=== PATIENT | female | born 1950 | race Caucasian/White ===

== ENCOUNTER 2021-01-08 08:35 | Outpatient (REF) | payer MEDICARE, SELFPAY ==
--- NOTE | ~2021-01-08 | MM_ITS ---
EXAMINATION: BONE DENSITOMETRY CLINICAL INDICATION: Screening for osteoporosis. COMPARISON: Previous BD dated 06/04/2016 and baseline BD dated 03/02/2012. TECHNIQUE: Using a [email or web address] DXA System (software version: 13.1) manufactured by [facility], dual-energy x-ray absorptiometry was performed of the lumbar spine and left hip. The images are of good technical quality. Summary results are attached. FINDINGS: AP SPINE L1-L4: Current: BMD 0.935 g/cm2, Z-score -0.4, T-score -2.0, osteopenia, 1.8% decrease from previous, 3.8% decrease from baseline (<5% change is not significant). Prior: BMD 0.952 g/cm2. Baseline: BMD 0.972 g/cm2. LEFT FEMUR, NECK: Current: BMD 0.651 g/cm2, Z-score -1.1, T-score -2.8, osteoporosis. Prior: BMD 0.755 g/cm2. Baseline: BMD 0.753 g/cm2. LEFT FEMUR, TOTAL: Current: BMD 0.705 g/cm2, Z-score -0.9, T-score -2.4, osteopenia, 11.4% decrease from previous, 13.3% decrease from baseline (<5% change is not significant). Prior: BMD 0.796 g/cm2. Baseline: BMD 0.813 g/cm2. IDENTIFIED RISK FACTORS: Height loss, family history (parental hip fracture), menopause. HISTORY OF FRACTURE: None listed. MEDICATIONS: Calcium supplements or multivitamin, vitamin D. MM/XR DEXA axial skeleton IMPRESSION: 1. DIAGNOSIS: Osteoporosis based on the lowest T-score value of -2.8 in the femoral neck applying World Health Organization criteria. 2. 10-YEAR FRACTURE RISK PREDICTION, FRAX: Major osteoporotic fracture (clinical spine, forearm, hip or shoulder) 28.8%. Hip fracture 12.8%. 3. Treatment Recommendations: NOF guidelines recommend consideration for treatment in postmenopausal women and men age 50 and older presenting with the following: -A hip or vertebral (clinical or morphometric) fracture. -T-score less than or equal to -2.5 at the femoral neck or spine after appropriate evaluation to exclude secondary causes. -Low bone mass at the hip or spine and a 10-year fracture probability by FRAX of greater than or equal to 3% for hip fracture or greater than or equal to 20% for major osteoporotic fracture based on the [place] adapted WHO algorithm. 4. Other Recommendations: All treatment decisions require clinical judgment and consideration of individual patient factors, including patient preferences, comorbidities, previous drug use, risk factors not captured in the FRAX model (e.g. frailty, falls, vitamin D deficiency, increased bone turnover, interval significant decline in bone density) and possible under or overestimation of fracture risk by FRAX. Additional medical evaluation for secondary cause of low bone mineral density may be appropriate. FUTURE SCAN RECOMMENDATION: People with diagnosed cases of osteoporosis or at high risk for fracture should have regular bone mineral density tests. For patients eligible for Medicare, routine testing is allowed once every 2 years. The testing frequency can be increased to one year for patients who have rapidly progressing disease, those who are receiving or discontinuing medical therapy to restore bone mass, or have additional risk factors.
--- NOTE | ~2021-01-08 | MM_ITS ---
EXAMINATION: MM SCREENING DIGITAL BREAST TOMOSYNTHESIS, BILATERAL CLINICAL INFORMATION: Screening. Asymptomatic. The lifetime risk of breast cancer based on the Tyrer-Cuzick Model is 4%. COMPARISON: Mammography: 08/17/2018, 07/12/2017, 06/04/2016 TECHNIQUE: Digital breast tomosynthesis is performed in both the craniocaudal and mediolateral oblique views along with computer-aided detection (CAD). Synthesized 2D images are generated from the tomosynthesis. Additional right MLO and additional left CC views are provided. FINDINGS: The breasts are heterogeneously dense, which may obscure small masses (ACR BI-RADS breast composition Category c). The denser breast tissue composition is predominantly right upper outer quadrant with lesser density on left. The parenchymal pattern is similar to prior exams. There is no developing density or interval mass or architectural abnormality. No abnormal calcifications. The axilla and skin contours are unremarkable. No significant changes. MM/MM tomosynthesis screening BI IMPRESSION: No mammographic evidence of malignancy. ASSESSMENT: BI-RADS 1: Negative RECOMMENDATION: Routine annual mammography screening. This patient's information was entered into a reminder system with a target due date for their next mammogram.
== END 2021-01-08 08:36 | disposition home or self-care (01) ==
LOC: HO.MAMMO 08:35
PROVIDERS: Visit Provider Family Medicine
DX: Z12.31 Encounter for screening mammogram for malignant neoplasm of breast (principal); Z13.820 Encounter for screening for osteoporosis; Z78.0 Asymptomatic menopausal state; R29.890 Loss of height
CPT/HCPCS: 77063; 77067; 77080

== ENCOUNTER 2023-02-04 10:51 | Outpatient (REF) | payer MEDICARE, SELFPAY ==
--- NOTE | ~2023-02-04 | MM_ITS ---
EXAMINATION: BONE DENSITOMETRY CLINICAL INDICATION: Localized osteoporosis. COMPARISON: Previous BD dated 01/08/2021 and baseline BD dated 03/02/2012. TECHNIQUE: Using a [employer] DXA System (software version: 13.1) manufactured by [employer], dual-energy x-ray absorptiometry was performed of the lumbar spine and left hip. The images are of good technical quality. Summary results are attached. FINDINGS: LEFT FEMUR, NECK: Current: BMD 0.713 g/cm2, Z-score -0.5, T-score -2.3, osteopenia. Prior: BMD 0.651 g/cm2. Baseline: BMD 0.753 g/cm2. LEFT FEMUR, TOTAL: Current: BMD 0.735 g/cm2, Z-score -0.6, T-score -2.2, osteopenia, 4.3% increase from previous, 9.6% decrease from baseline (<5% change is not significant). Prior: BMD 0.705 g/cm2. Baseline: BMD 0.813 g/cm2. AP SPINE L1-L4: Current: BMD 0.901 g/cm2, Z-score -0.6, T-score -2.3, osteopenia, 3.6% decrease from previous, 7.3% decrease from baseline (<5% change is not significant). Prior: BMD 0.935 g/cm2. Baseline: BMD 0.972 g/cm2. IDENTIFIED RISK FACTORS: Height loss, family history (parent hip fracture), menopause. HISTORY OF FRACTURE: None listed. MEDICATIONS: Calcium, vitamin D. MM/XR DEXA axial skeleton IMPRESSION: 1. DIAGNOSIS: Osteopenia based on the lowest T-score value of -2.3 in the femur neck and lumbar spine applying World Health Organization criteria. 2. 10-YEAR FRACTURE RISK PREDICTION, FRAX: Major osteoporotic fracture (clinical spine, forearm, hip or shoulder) 25.5%. Hip fracture 12.9%. 3. Treatment Recommendations: NOF guidelines recommend consideration for treatment in postmenopausal women and men age 50 and older presenting with the following: -A hip or vertebral (clinical or morphometric) fracture. -T-score less than or equal to -2.5 at the femoral neck or spine after appropriate evaluation to exclude secondary causes. -Low bone mass at the hip or spine and a 10-year fracture probability by FRAX of greater than or equal to 3% for hip fracture or greater than or equal to 20% for major osteoporotic fracture based on the [place] adapted WHO algorithm. 4. Other Recommendations: All treatment decisions require clinical judgment and consideration of individual patient factors, including patient preferences, comorbidities, previous drug use, risk factors not captured in the FRAX model (e.g. frailty, falls, vitamin D deficiency, increased bone turnover, interval significant decline in bone density) and possible under or overestimation of fracture risk by FRAX. Additional medical evaluation for secondary cause of low bone mineral density may be appropriate. FUTURE SCAN RECOMMENDATION: People with diagnosed cases of osteoporosis or at high risk for fracture should have regular bone mineral density tests. For patients eligible for Medicare, routine testing is allowed once every 2 years. The testing frequency can be increased to one year for patients who have rapidly progressing disease, those who are receiving or discontinuing medical therapy to restore bone mass, or have additional risk factors.
== END 2023-02-04 10:52 | disposition home or self-care (01) ==
LOC: HO.MAMMO 10:51
PROVIDERS: Visit Provider Internal Medicine Endocrinology, Diabetes & Metabolism
DX: Z13.820 Encounter for screening for osteoporosis (principal); Z78.0 Asymptomatic menopausal state; M81.6 Localized osteoporosis [Lequesne]
CPT/HCPCS: 77080

== ENCOUNTER → 2025-05-18 09:15 | Outpatient (BNV) | payer MEDICARE, SELFPAY | PROVIDERS: PCP Family Medicine; Visit Provider Radiology Diagnostic Radiology | DX: E28.39 Other primary ovarian failure (principal) | CPT/HCPCS: 77080 ==

== ENCOUNTER 2025-05-18 09:22 | Outpatient (REF) | payer MEDICARE, SELFPAY ==
--- NOTE | ~2025-05-18 | MM_ITS ---
EXAMINATION: DXA BONE DENSITY AXIAL HISTORY: OSTEOPENIA TECHNIQUE: [place] Dual energy absorptiometry (DEXA) of the lumbar spine, total left hip, and femoral neck was performed. COMPARISON: Comparison is made with the prior examination dated 02/04/2023. FINDINGS: The bone mineral density of the lumbar spine is 0.903 g/cm2, corresponding to a T-score of -2.3, and a Z-score of -0.8. This is indicative of osteopenia. This represents a BMD change of 0.2% compared to the prior exam. This is not statistically significant. The bone mineral density of the left total hip is 0.758 g/cm2, corresponding to a T-score of -2.0, and a Z-score of -0.4. This is indicative of osteopenia. This represents a BMD change of 3.1% compared to the prior exam. This is not statistically significant. The bone mineral density of the left femoral neck is 0.723 g/cm2, corresponding to a T-score of -2.3, and a Z-score of -0.5. This is indicative of osteopenia. This represents a BMD change of 1.4% compared to the prior exam. FRACTURE RISK: The FRAX index suggests a ten year probability of major osteoporotic fracture of 27.9%, and of hip fracture 17.7%. MM/XR DEXA axial skeleton IMPRESSION: Based on bone mineral density, and according to World Health Organization (WHO) criteria, the diagnosis is consistent with osteopenia. Statistically, 68% of repeat scans fall within 1 SD (+/- 0.010 g/cm2 for AP spine L1-L4) and 1 SD (+/- 0.012 g/cm2 for femur total) FRAX is a trademark of the [employer] [facility] [employer], a World Health Organization (WHO) Collaborating Center. Electronically signed by: Pantera Patiño MD 05/18/2025 10:30 AM EDT
--- OUTSIDE RECORDS SUMMARY | 2025-05-18 10:14 | XMS_ITS | Clinical Summary ---
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 Name Role Phone Daron Juarez DO Primary Care Provider [phone] Allergies Active Allergy Reactions Criticality Noted Date Comments Allerg Xt,D.Farinae-D.Pteronys 06/22/2023 Animal Dander 06/22/2023 Bee Pollen 06/22/2023 Bee Pollens Swelling Low 12/17/2015 Horse/Equine Containing Products 06/22/2023 House Dust Mite 06/22/2023 Levonorgestrel-Ethinyl Estrad 06/22/2023 Mold 06/22/2023 Mold Extracts Other (See Comments) Low 04/06/2019 congestion Other 06/22/2023 Other reaction(s): guinea pigs, horses, rabbits Pollen Extracts 06/22/2023 Pollens Extract Other (See Comments) Low 04/06/2019 congestion Atomoxetine 06/09/2024 Tree And Shrub Pollen 06/22/2023 Medications Medication-Evert e Text multivitamin Active carboxymethylc ellulose sodium (THERATEARS OPHT) Apply to eye. 2 Active Medication-Evert e TextIndication s:Osteo-Sustai n 3 tabs a day Indications: Osteo-Sustain 3 tabs a day Active CHOLECALCIFERO L, VITAMIN D3, ORAL Take by mouth daily. 0246-1469 units daily Active cetirizine (ZYRTEC) 10 MG tablet Take by mouth as needed. Active atomoxetine (STRATTERA) 60 mg capsule Take 60 mg by mouth daily. 3 Active EPINEPHrine 0.3 mg/0.3 mL auto-injector 0.3 mg once as needed. 4 Active b complex vitamins capsule Take 1 capsule by mouth daily. Active diphenhydrAMIN E (BENADRYL) 25 mg capsule Take 25 mg by mouth every 6 (six) hours as needed for itching. Active mometasone (NASONEX) 50 mcg/actuation nasal spray 2 sprays by Nasal route daily. Active clobetasol (TEMOVATE) 0.05 % ointmentIndica tions:Lichen sclerosus Apply topically 4 (four) times a week. Thin application to affected area 30 g 5 Active magnesium carbonate, bulk, Powd by Miscellaneous route. Active Active Problems Problem Noted Date Diagnosed Date Osteopenia of multiple sites 11/17/2024 Trigger ring finger of left hand 07/28/2024 Assessment & Plan (07/28/2024 10:19 PM EST): Use warm packs in addition to moisturizer or baby oil and gently massage along the flexor tendon sheath starting from proximal crease aiming distally in gentle circular motion. Call if symptoms progress despite above strategy. Trigger middle finger of left hand 07/28/2024 Assessment & Plan (07/28/2024 10:22 PM EST): See instructions for left ring finger triggering. Age-related osteoporosis wit hout current pathological fracture 08/12/2022 Assessment & Plan (11/17/2024 8:41 AM EDT): BMD from 02/04/2023 at [facility] revealed marked osteopenia with increased risk of osteoporotic fracture. Fall and fracture prevention strategies reviewed and strongly encouraged. Proper calcium and vitamin D supplementation. Daily weightbearing exercises. I have explained to her that at this stage she is not able to keep bone density from worsening just by above strategies and needs to start bone preserving therapy as soon as possible. She wishes to contact [facility] hoping to get implants prior to starting bone preserving therapy. 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 Interval BMD requested. Assessment & Plan (07/28/2024 10:26 PM EST): BMD from 02/04/2023 at [facility] revealed marked osteopenia with increased risk of osteoporotic fracture. Fall and fracture prevention strategies reviewed and strongly encouraged. Proper calcium and vitamin D supplementation. Daily weightbearing exercises. I have explained to her that at this stage she is not able to keep bone density from worsening just by above strategies and needs to start bone preserving therapy as soon as possible. She wishes to contact [facility] hoping to get implants prior to starting bone preserving therapy. 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 Assessment & Plan (05/09/2024 10:18 PM EDT): She could not recall when was the last BMD so I requested's checking on it and if longer than 2 years ago consider interval imaging. Fall and fracture prevention strategies reviewed and strongly encouraged. Proper calcium and vitamin D supplementation. Daily weightbearing exercises. 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 Assessment & Plan (02/23/2023 9:16 PM EDT): She could not recall when was the last BMD so I requested's checking on it and if longer than 2 years ago consider interval imaging. Fall and fracture prevention strategies reviewed and strongly encouraged. Proper calcium and vitamin D supplementation. Daily weightbearing exercises. 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 Assessment & Plan (08/12/2022 10:56 PM EST): She could not recall when was the last BMD so I requested's checking on it and if longer than 2 years ago consider interval imaging. Fall and fracture prevention strategies reviewed and strongly encouraged. Proper calcium and vitamin D supplementation. Daily weightbearing exercises. Vitamin D insufficiency 08/12/2022 Assessment & Plan (11/16/2024 9:43 AM EDT): Continue regular supplementation to keep it in optimal range: 40-45 ng/ml. Assessment & Plan (05/09/2024 10:17 PM EDT): Continue regular supplementation to keep it in optimal range: 40-45 ng/ml. Assessment & Plan (02/23/2023 9:15 PM EDT): Continue regular supplementation to keep it in optimal range: 40-45 ng/ml. Assessment & Plan (08/12/2022 10:55 PM EST): Serum level requested to make sure that she does not require additional supplementation to keep it in optimal range: 40-45 ng/ml. Psoriatic arthritis 08/12/2022 Assessment & Plan (11/17/2024 8:41 AM EDT): She is not clear whether diagnosis was made in 2012 or 2015 but believes it was based on sausage toe appearance. She was monitored & told that methotrexate may be offered if disease progresses. According to her assessment she does not feel need for methotrexate at this time since in her opinion the disease is rather stable. Lab work, x-rays returned repeatedly reassuring as recently as on 08/24/2024. She is asked to update her vaccination status for Shingrix and tetanus and return in 6 mths. Continue regular exercise routine, avoid falls, injuries, overuse and sick contacts . I provided her with pamphlets on methotrexate and Taltz after reviewing the office of most frequent side effects, ways of administering and expected benefits. She is asked to review the information, write her questions for discussion at next visit in 6 mths or earlier if needed. Assessment & Plan (07/28/2024 10:27 PM EST): She is not clear whether diagnosis was made in 2012 or 2015 but believes it was based on sausage toe appearance. She was monitored told that methotrexate may be offered if disease progresses. According to her assessment she does not feel need for methotrexate at this time since in her opinion the disease is rather stable. Lab work, x-rays were reassuring -new set of labs and x-rays requested for interval checkup. She is asked to up to date her vaccination status for Shingrix and tetanus and return in 5 weeks. Continue regular exercise routine, avoid falls, injuries, overuse and sick contacts . I provided her with pamphlets on methotrexate and Taltz after reviewing the office of most frequent side effects, ways of administering and expected benefits. She is asked to review the information, write her questions for discussion at next visit in 5 weeks. Assessment & Plan (05/09/2024 10:19 PM EDT): She is not clear whether diagnosis was made in 2012 or 2015 but believes it was based on sausage toe appearance. She was monitored told that methotrexate may be offered if disease progresses. According to her assessment she does not feel need for methotrexate at this time since in her opinion the disease is rather stable. Lab work, x-rays are reassuring - she is asked to continue regular exercise routine, avoid falls, injuries, overuse and sick contacts and return in 3 months . Assessment & Plan (02/23/2023 9:19 PM EDT): She is not clear whether diagnosis was made in 2012 or 2015 but believes it was based on sausage toe appearance. She was monitored told that methotrexate may be offered if disease progresses. According to her assessment she does not feel need for methotrexate at this time since in her opinion the disease is rather stable. Lab work, x-rays are reassuring - she is asked to continue regular exercise routine, avoid falls, injuries, overuse and sick contacts and return in 12 months or earlier if necessary. Assessment & Plan (08/12/2022 10:59 PM EST): She is not clear whether diagnosis was made in 2012 or 2015 but believes it was based on sausage toe appearance. She was monitored told that methotrexate may be offered if disease progresses. According to her assessment she does not feel need for methotrexate at this time since in her opinion the disease is rather stable. I took the liberty of new set of lab work and requested release of prior records for comparison to guide further management Provided lab work, x-rays are reassuring she is asked to continue regular exercise routine, avoid falls, injuries, overuse and sick contacts and return in 6 months. Lichen sclerosus 06/23/2018 Overview (03/21/2025): Biopsy was negative years ago But diagnosed by exam by Dr Tavera Causes itchiness Uses clobetasol twice weekly -flare 06/2018 - burst and taper - much better - continue clobetasol 3x/wk, estradiol 3x/wk 09/2019 - using clob 2x/wk, clitoral keratosis returned; advised daily clobetasol until next visit 09/2020 - clitoral area and 6mm area at posterior forchet with white keratosis; advised increase clob from 2x/wk to 4x/wk, and resumption of estrace pea sized to introitus 2x/wk, olive oil last day 10/2021 - stable anatomy, with resolution of keratosis. Continue use of clobetasol 4 times weekly, and estradiol 2 times weekly 05/2023 - no change 02/2025 - stopped estradiol . Continue clobetasol 4x/wk Assessment & Plan (03/21/2025 4:17 PM EDT): Stable LS with vague hypopigmentation She stopped estradiol when she ran out 6 months ago and notes nothing negative Advised ok to not resume this Assessment & Plan (06/24/2023 9:30 AM EST): Feels status quo Using clobetasol small amount about 4 times weekly and estradiol about 2 times weekly We discuss option of oils as well today Exam with 95% phimosis of the hinson and complete loss of labia minora. Skin is atrophic smooth and without lesions or keratosis Advised no change in regimen Assessment & Plan (11/21/2021 10:45 AM EDT): 10/2021 - stable anatomy, with resolution of keratosis. Continue use of clobetasol 4 times weekly, and estradiol 2 times weekly Assessment & Plan (10/11/2020 11:10 AM EDT): 95% phimosis of hinson, with some hinson edema, and slight white keratosis around clitoris, absent labia minora Keratosis 6mm at posterior forchet Pt shown with mirror, reviewed use of topicals 09/2020 - clitoral area and 6mm area at posterior forchet with white keratosis; advised increase clob from 2x/wk to 4x/wk, and resumption of estrace pea sized to introitus 2x/wk, olive oil last day Assessment & Plan (09/29/2019 3:55 PM EST): She has not seen me in over a year; but reports has been compliant with clobetasol and estrace, using each about twice weekly. Things things are ok; better than they had been at worst in the past, but not without symtpoms. Feels itching at times. I show her with a mirror today's exam: there is again hyperkeratosis around the clitoral area; still 80% fusion in this area. I ask her to concentrate on this area and apply nightly clobetasol here for about 8 weeks; until next visit. The rest of the vulva she can conitnue as she is doing with twice weekly clobetasol and estrace. The rest of the vulva is stable; absent labia minora, palourous perineum, but without keratosis, bleeding, or skin concerns. We discuss small risk of skin cancer with poor control. Refill clobetasol printed for patient upon her request. Total time spent 15] minutes face to face; at least 50% of this time was spent on direct patient counseling. All questions answered. History of malignant melanoma 06/23/2018 Overview (06/23/2018): 1986 Assessment & Plan (11/16/2024 9:43 AM EDT): According to her report excised completely and no recurrence since 1992. She is under regular dermatologic surveillance every 6-12 months. Uses daily sun protection. Assessment & Plan (07/28/2024 9:48 AM EST): According to her report excised completely and no recurrence since 1992. She is under regular dermatologic surveillance every 6-12 months. Uses daily sun protection. Assessment & Plan (05/09/2024 10:17 PM EDT): According to her report excised completely and no recurrence since 1992. She is under regular dermatologic surveillance every 6-12 months. Uses daily sun protection. Assessment & Plan (02/11/2023 10:06 AM EDT): According to her report excised completely and no recurrence since 1992. She is under regular dermatologic surveillance every 6-12 months. Uses daily sun protection. Assessment & Plan (08/12/2022 10:54 PM EST): According to her report excised completely and no recurrence since 1992. She is under regular dermatologic surveillance every 6-12 months. Uses daily sun protection. Encounters Date Type Department Care Team Description 03/21/2025 4:10 PM EDT Office Visit [facility] [address] [place] [address] [place] [address] Deisi Mendoza MD Lichen sclerosus (Primary Dx); Breast cancer screening by mammogram from Last 3 Months Immunizations Immunization Administration Dates Next Due INFLUENZA, SPLIT VIRUS, TRIV ALENT W/ PRESERVATIVE IM 04/17/2020,05/16/2019 Influenza High-Dose Quadriva lent Preservative Free IM 04/28/2023,05/26/2022,04/10/2021 Influenza High-Dose Trivalen t Preservative Free IM 03/30/2024 Influenza Quadrivalent Adjuv anted Preservative Free IM 04/17/2020 Influenza Quadrivalent Prese rvative Free IM 06/01/2017 Influenza quadrivalent nasal 05/22/2011 Influenza, whole 05/11/2018, 7,05/07/2016,05/13,06/14/2014,05/25/2013,05/26/2012 PPD Test 07/15/2010 Pneumococcal conjugate PCV13 07/02/2016 Pneumococcal polysaccharide PPSV23 02/25/2015 Td (adult),2 Lf Tetanus Toxo id, PF, Adsorbed 03/07/2008 Td, unspecified formulation 03/07/2008 Tdap 08/31/2011 Zoster live 08/29/2014 Family History Medical History Relation Comments Melanoma Brother Cardiovascular disease Father Depression Father Heart attack Father Alzheimer's disease Maternal Grandmother Diabetes Maternal Grandmother Cardiovascular disease Mother Dementia Mother Hypertension Mother Cancer Paternal Grandfather ADD / ADHD Sister 1 Depression Sister 1 ADD / ADHD Sister 2 Depression Sister 2 Relation Status Comments Brother Father Maternal Grandmother Mother Paternal Grandfather Sister 1 Sister 2 Social History Tobacco Use Types Packs/Day Years Used Date Smoking Tobacco: Never Smokeless Tobacco: Never Tobacco Cessation:Counseling Given: Not Answered Alcohol Use Standard Drinks/Week Comments Yes 0 (1 standard drink = 0.6 oz pur e alcohol) socially rare Education Answer Date Recorded Are you interested in more education? Not on barrera e 11/20/2022 Are you concerned about learning? Not on file 11/20/2022 No 11/20/2022 No 11/20/2022 Food Answer Date Recorded Within the past 6 months we worried whether our food would run out before we got money to buy more. Never True 01/22/2025 Within the past 6 months the food we bought just didn't last and we didn't have enough money to get more. Never True Residential Stability Answer Date Recor ded What is your housing situation today? I have kelsi sing 01/22/2025 How many times have you move d in the past 12 months? Zero (I did not move) 01/22/2025 Paying for Meds Answer Date Recorded Do you have trouble paying for medicines? No 01/22/2025 Paying Utility Bills Answer Date Record ed Do you have trouble paying your heating or elect ricity bill? No 01/22/2025 Transportation Answer Date Recorded Has the lack of transportati on kept you from medical appointments or from getting medications? No 01/22/2025 Digital Access Answer Date Recorded No 01/22/2025 Yes 01/22/2025 Do you have reliable internet access at home? Ye s 01/22/2025 Do you have a device (e.g., phone, tablet, computer) with a working camera? Yes 01/22/2025 Intimate Partner Violence Answer Date R ecorded Are you denied basic needs s uch as food, clothing, or medical care? No 01/22/2025 In the past 12 months have y ou been in a relationship with a person who hurts, threatens, or tries to control you? No 01/22/2025 Are you denied basic needs s uch as food, clothing, or medical care? No 01/22/2025 In the past 12 months have y ou been in a relationship with a person who hurts, threatens, or tries to control you? 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 Not on file Not on file Not on file Last Filed Vital Signs Vital Sign Reading Time Taken Comments Blood Pressure 122/70 03/21/2025 3:53 PM EDT Pulse 82 01/22/2025 11:23 PM EDT Temperature 35.6 C (96.1 F) 01/22/2025 11:23 PM EDT Respiratory Rate 16 01/22/2025 11:23 PM EDT Oxygen Saturation 100% 01/22/2025 11:23 PM EDT Inhaled Oxygen Concentration - - Weight 73 kg (161 lb) 03/21/2025 3:53 PM EDT Height 162.6 cm (5' 4 ) 03/21/2025 3:53 PM EDT Body Mass Index 27.64 03/21/2025 3:53 PM EDT Plan of Treatment Upcoming Encounters Date Type Department Care Team (Late st Contact Info) Description 06/27/2025 4:30 PM EST Office Visit [facility] [address] [place] [address] Tiana Ovalles MD [address] [place] [address], [address] [place] [address] [email or web address] Health Maintenance Due Date Last Done Comments DEPRESSION SCREENING 1962 COLOGUARD 1995 FIT TEST 1995 FOBT 1995 SIGMOIDOSCOPY 1995 VIRTUAL COLONOSCOPY 1995 ZOSTER VACCINES (2 of 3) 10/24/2014 08/29/2014 Adult Td,Tdap Booster 08/31/2021 08/31/2011 , 03/07/2008, 03/07/2008 LIPID PANEL 07/30/2023 07/30/2018 RSV VACCINE (1 - 1-dose 75+ series) 2025 INFLUENZA VACCINE (#1) 2025 4, 04/28/2023, 05/26/2022, Additional history exists COVID-19 VACCINE (9 - 2025- season) 2025 03/30/2024, 06/30/2023, 12/23/2022, Additional history exists COLONOSCOPY 06/09/2034 06/09/2024 COLORECTAL CANCER SCREENING 06/09/2034 PNEUMOCOCCAL VACCINES (50+ years) Completed 07/02/2016, 02/25/2015 HEPATITIS C SCREENING Completed 08/01/2024 OSTEOPOROSIS SCREENING INITIAL (ONE-TIME) Completed 11/16/2024, 02/04/2023 SMOKING STATUS SCREENING (Once After 26 Yrs) Completed 01/22/2025 HEPATITIS A VACCINES Aged Out No long er eligible based on patient's age to complete this topic HIB VACCINES Aged Out No longer eligi ble based on patient's age to complete this topic MENINGOCOCCAL VACCINES (ACWY) Aged Out No longer eligible based on patient's age to complete this topic MENINGOCOCCAL VACCINES (B) Aged Out N o longer eligible based on patient's age to complete this topic Medical Devices Not on file Procedures Procedure Name Priority Date/Time Associated Diagnosis Comments BD DXA SCREENING Routine 11/16/2024 9:36 AM EDT Osteopenia of multiple sites HEPATITIS C ANTIBODY, QUALITATIVE Routine 08/01/2024 11:33 AM EST Psoriatic arthritis History of malignant melanoma Need for hepatitis C screening test ENDOSCOPY, COLON 06/09/2024 12:2 6 PM EST LIPID PANEL Routine 07/30/2018 10:01 AM EST Screening for lipoid disorders SAPHO syndrome from Last 3 Months or Most Recently Relevant to Health Maintenance Results * Hepatitis C antibody, qualitative (08/01/2024 11:33 AM EST) HCV NON-REACTIV E NON-REACTI VE [facility] Blood 08/01/2024 11:3 3 AM EST 08/01/2024 11:40 AM EST us Tiana Ovalles MD LAB BLOOD ORDERABLES Fin al Result [address] [address] * ENDOSCOPY, COLON (06/09/2024 12:26 PM EST) Narrative Transcriptions Medardo Neff MD - 06/09/2024 12:26 PM EST [facility] Patient Name: Leeann Malu Attending MD:: MEDARDO NEFF MD, Procedure Date: 06/09/2024 12:26PM Date of : 1950 Age: 74 Admit Type: Outpatient Gender: Female Room: [place] [address] Referring MD: Daron Juarez Exam Type: Colonoscopy Indications: Screening for colorectal malignant neoplasm, Last colonoscopy: 2007 Medications: Monitored Anesthesia Care Procedure: Informed consent was obtained from the patientafter discussion of the indications, limitations, alternatives, benefits, and risks of the procedure. Risks specifically discussed include but are not limited to medication reactions, missed lesions, bleeding, perforation, or the need for emergent surgery. Throughout the procedure, the patient's blood pressure, pulse, end-tidal CO2, and oxygensaturations were monitored continuously. The Olympus adult variable colonoscope [id number] #5 was introduced through the anus and advanced to the cecum, identified by the appendiceal orifice. The colonoscopy was performed without difficulty. The patient tolerated the procedure well. The qualityof the bowel preparation was good. Anatomicallandmarks were photographed. Complications: No immediate complications. Estimated blood loss:None. Findings: The perianal and digital rectal examinations were normal. An 8 mm polyp was found in the cecum. The polyp was sessile. The polyp was removed with a cold snare. Resection and retrieval were complete. The rectum, recto-sigmoid colon, sigmoid colon, descending colon, splenic flexure, transversecolon, hepatic flexure, ascending colon, appendicealorifice and rectum (on retroflexion) appeared normal. Impression: - One 8 mm polyp in the cecum, removed with a cold snare. Resected and retrieved. - The rectum (on retroflexion), rectum, sigmoidcolon, descending colon, splenic flexure, transversecolon, hepatic flexure, ascending colon, recto-sigmoidcolon and appendiceal orifice are normal. Recommendation: - Discharge patient to home. - Resume previous diet. - Continue present medications. - Await pathology results. - Repeat colonoscopy in 3 years for surveillance. - I will send you pathology results by letter. Ifyou do not get results in 3 weeks telephone myoffice. MEDARDO NEFF MD 06/09/2024 12:58:12 PM This report has been signed electronically. Number of Addenda: 0 Note Initiated On: 06/09/2024 12:26 PM Procedure Code(s): --- Professional --- 14868, Colonoscopy, flexible; with removal of tumor(s), polyp(s), or other lesion(s) by snare technique --- Technical --- 94146, Colonoscopy, flexible; with removal of tumor(s), polyp(s), or other lesion(s) by snare technique Diagnosis Code(s): --- Professional --- Z12.11, Encounter for screening for malignantneoplasm of colon D12.0, Benign neoplasm of cecum --- Technical --- Z12.11, Encounter for screening for malignantneoplasm of colon D12.0, Benign neoplasm of cecum CPT copyright 2021 [employer]. All rights reserved. The codes documented in this report are preliminary and upon tar kettle runner reviewmay be revised to meet current compliance requirements. Procedure Date: 06/09/2024 12:26:[address] [place] [id number] [place] Daron Juarez DO GI PROCEDURE ORDERABLES Sowmya l Result * DEXA SCAN (02/04/2023 12:30 PM EDT) Historical Provider HEALTH MAINTENANCE Final Result * (ABNORMAL) Lipid panel (07/30/2018 10:01 AM EST) HDL 59 mg/dL [facility] Comment: Interpretation <40 mg/dL: Low HDL cholesterol (major risk factor for CHD) Greater than or equal to 60 mg/dL: High HDL cholesterol ( negative risk factor for CHD) HDL - cholesterol is affected by a number of factors, e.g. smoking, excerise, hormones, sex and age. CHOLESTEROL 173 0 - 240 mg/dL [facility] TRIGLYCERIDES 72 30 - 160 mg/dL [facility] LDL 100 50 - 129 mg/dL [facility] Comment: LDL levels in terms of risk for coronary heart disease: <100 mg/dL: Optimal 100-129 mg/dL: Near or above optimal 130-159 mg/dL: Borderline high 160-189 mg/dL: High >190 mg/dL: Very High CARDIAC RISK RATIO 2.9(L) 3.3 - 4.4 [facility] Blood 07/30/2018 10:0 1 AM EST 07/30/2018 10:02 AM EST Zari Morrison MD LAB BLOOD ORDERABLES Sowmya l Result [facility] [address] [place] [address] from Last 3 Months or Most Recently Relevant to Health Maintenance Insurance [place] MEDICARE PPO BLUE REPLACEMENT [facility] MEDICARE PPO BLUE REPLACEMENT [facility] MEDICARE PPO BLUE REPLACEMENT [facility] MEDICARE PPO BLUE REPLACEMENT [facility] MEDICARE PPO BLUE REPLACEMENT [facility] MEDICARE PPO BLUE REPLACEMENT [facility] MEDICARE PPO BLUE REPLACEMENT [facility] MEDICARE PPO BLUE REPLACEMENT [facility] MEDICARE PPO BLUE REPLACEMENT Care Teams Hemp Fiber Taker Off Relationship Specialty Start Date End Date [facility] [address] [address] PCP - General Family Medicine 04/27/24 Additional Source Comments The information contained in this document represents components of the legal health record. It is not the complete legal health record.Located Within [facility]
--- OUTSIDE RECORDS SUMMARY | 2025-05-18 10:14 | XMS_ITS | Encounter Summary ---
Author Organization [facility] Address [address] [place] [address] [place] [address] Phone Care Team Providers Care Activity Manager Name Role Phone Zari Morrison MD Primary Care Provider [phone] [phone] Daron Juarez DO Primary Care Provider Reason for Referral * Speech Therapy (Routine) - Closed Specialty Diagnoses / Procedures Referred By Lele grace Referred To Contact Speech Pathology Nixon Aguilar MD Phone: tel: fax: [email or web address] [facility] [address] [place] [address] Phone: tel: Referral ID Status Reason Start Date Expiration Date Visits Re quested Visits Authorized [id number] Closed 04/24/2019 04/24/2020 1 1 Encounter Details Date Type Department Care Team (Late st Contact Info) Description 04/24/2019 Transcribe Orders [facility] [address] [place] [address] Nixon Aguilar MD [address] 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 Not on file Not on file documented as of this encounter Plan of Treatment Upcoming Encounters Date Type Department Care Team (Late st Contact Info) Description 06/27/2025 4:30 PM EST Office Visit [facility] Rheumatology [address] [place] [address] Tiana Ovalles MD [address] [address] [email or web address] Scheduled Referrals Name Type Priority Associated Diagnoses Order Schedule Ambulatory referral to [facility] Speech Language Pathology Outpatient Referral Routine Ordered: 04/24/2019 documented as of this encounter Visit Diagnoses Not on filedocumented in this encounter Care Teams Activity Manager Relationship Specialty Start Date End Date Zari Morrsion MD [address] [place] [address] [email or web address] PCP - General Family Medicine 09/27/1704/26 Daron Juarez DO [address] [address] PCP - General Family Medicine 04/27/24 documented as of this encounter Additional Source Comments The information contained in this document represents components of the legal health record. It is not the complete legal health record.[facility]
--- OUTSIDE RECORDS SUMMARY | 2025-05-18 10:14 | XMS_ITS | Encounter Summary ---
Author Organization [facility] Address [address] [facility] [address] [place] [address] Phone Care Team Providers Care Assistant Mechanic Name Role Phone Zari Morrison MD Primary Care Provider [phone] [phone] Daron Juarez DO Primary Care Provider [phone] Encounter Details Date Type Department Care Team (Late st Contact Info) Description 12/26/2018 Procedure Pass [facility] Endoscopy Admitting Dept Virtual Department [address] [place] [address] Social History Tobacco Use Types Packs/Day Years Used Date Smoking Tobacco: Never Smokeless Tobacco: Never Alcohol Use Standard Drinks/Week Comments No 0 (1 standard drink = 0.6 oz [...] Description 06/27/2025 4:30 PM EST Office Visit [facility] Rheumatology [address] [place] [address] Tiana Ovalles MD [address] [facility], [address] [place] [address] [email or web address] documented as of this encounter Visit Diagnoses Not on filedocumented in this encounter Care Teams Assistant Mechanic Relationship Specialty Start Date End Date Zari Morrison MD [address] [place] [address] [email or web address] PCP - General Family Medicine 09/27/1704/26 Daron Juarez DO [address] [address] PCP - General Family Medicine 04/27/24 documented as of this encounter Additional Source Comments The information contained in this document represents components of the legal health record. It is not the complete legal health record.[facility]
--- OUTSIDE RECORDS SUMMARY | 2025-05-18 10:14 | XMS_ITS | Encounter Summary ---
Author Organization [facility] Address [address] [place] [address] Phone Care Team Providers Care Shuffle Board Operator Name Role Phone Daron Juarez DO Primary Care Provider Encounter Details Date Type Department Care Team (Late st Contact Info) Description 06/09/2024 Procedure Pass [facility] Endoscopy Admitting Dept Virtual Department [address] [place] [address] Social History Tobacco Use Types Packs/Day Years Used Date Smoking Tobacco: Never Smokeless Tobacco: Never Alcohol Use Standard Drinks/Week Comments Yes 0 (1 standard drink = 0.6 oz pur e alcohol) socially rare Education Answer Date Recorded Are you interested in more education? Not on barrera e 11/20/2022 Are you concerned about learning? Not on file 11/20/2022 No 11/20/2022 No 11/20/2022 Digital Access Answer Date Recorded No 12/21/2022 No 12/21/2022 Reliable internet access at home? Not on file 12/21/2022 Device with a working camera? Not on file Intimate Partner Violence Answer Date R ecorded Denied Basic Needs Not on file 06/07/2024 In the past 12 months have y ou been in a relationship with a person who hurts, threatens, or tries to control you? No 06/07/2024 Worried food would run out Not on file 06/07 In the past 12 months have y ou been in a relationship with a person who hurts, threatens, or tries to control you? No 06/07/2024 Comments No Sex and Gender Information Value [...] Upcoming Encounters Date Type Department Care Team ([facility] st Contact Info) Description 06/27/2025 4:30 PM EST Office Visit [facility] Rheumatology [address] [place] [address] Tiana Ovalles MD 22 [facility], [address] [place] [address] documented as of this encounter Visit Diagnoses Not on filedocumented in this encounter Care Teams Shuffle Board Operator Relationship Specialty Start Date End Date Daron Juarez DO [address] [facility] [address] [place] [address] PCP - General Family Medicine 04/27/24 documented as of this encounter Additional Source Comments The information contained in this document represents components of the legal health record. It is not the complete legal health record.[facility]
--- OUTSIDE RECORDS SUMMARY | 2025-05-18 10:14 | XMS_ITS | Encounter Summary ---
Author Organization [facility] Address [address] [facility] [address] [place] [address] Phone Care Team Providers Care Automobile Body Repairer Name Role Phone Zari Morrison MD Primary Care Provider [phone] Daron Juarez DO Primary Care Provider Reason for Referral * Speech Therapy (Routine) - Closed Specialty Diagnoses / Procedures Referred By Lele grace Referred To Contact Speech Pathology Diagnoses Encounter for rehabilitation Nixon Aguilar MD Phone: tel: fax: [email or web address] [facility] [address] [place] [address] Phone: tel: Referral ID Status Reason Start Date Expiration Date Visits Re quested Visits Authorized [id number] Closed 08/31/2019 07/25/2020 25 25 Encounter Details Date Type Department Care Team (Latest Contact Info) Description 08/31/2019 Transcribe Orders [facility] [address] [place] [address] Nixon Aguilar MD [address] [facility], [address] [place], [place] [address] [email or web address] Encounter for rehabilitation (Primary Dx) Social History Tobacco Use Types Packs/Day Years [...] Upcoming Encounters Date Type Department Care Team ([facility] st Contact Info) Description 06/27/2025 4:30 PM EST Office Visit [facility] Rheumatology [address] [place] [address] Tiana Ovalles MD [address] [address] Scheduled Referrals Name Type Priority Associated Diagnoses Orde r Schedule Ambulatory referral to [facility] Speech Language Pathology Outpatient Referral Routine Encounter for rehabilitation Ordered: 08/31/2019 documented as of this encounter Visit Diagnoses Diagnosis Encounter for rehabilitation- Primary documented in this encounter Care Teams Automobile Body Repairer Relationship Specialty Start Date End Date Zari Morrison MD [address] [place] [address] [email or web address] PCP - General Family Medicine 09/27/1704/26 Daron Juarez DO [address] [address] PCP - General Family Medicine 04/27/24 documented as of this encounter Additional Source Comments The information contained in this document represents components of the legal health record. It is not the complete legal health record.[facility]
--- OUTSIDE RECORDS SUMMARY | 2025-05-18 10:14 | XMS_ITS | Encounter Summary ---
Author Organization [facility] Address [address] [facility] [address] [place] [address] Phone Care Team Providers Care Shrimper Name Role Phone Love Tavera MD Primary Care Provid er Zari Morrison MD Primary Care Provider [phone] Daron Juarez DO Primary Care Provider [phone] Encounter Details Date Type Department Care Team (Latest Contact Info) Description 06/01/2017 Transcribe Orders [facility] [address] [place] [address] Nixon Aguilar MD [address] [place] [address], [address] [place] [address] [email or web address] Numbness (Primary Dx) Social History Tobacco Use Types Packs/Day Years Used Date Smoking Tobacco: Never Assessed Comments Unknown Sex and Gender Information Value Date Recorded Sex Assigned at Not on file Legal Sex Female 10:02 PM EDT Gender Identity Not on file Sexual Orientation Not on file documented as of this encounter Plan of Treatment Upcoming Encounters Date Type Department Care Team (Late st Contact Info) Description 06/27/2025 4:30 PM EST Office Visit [facility] Rheumatology [address] [place] [address] Tiana Ovalles MD [address] [place] [address] [address] [place] [address] [email or web address] documented as of this encounter Results * T3, Total (06/01/2017 5:03 PM EST) TOTAL T3 96 80 - 200 ng/dL [facility] Blood 06/01/2017 5:03 PM EST 06/01/2017 5:09 PM EST us Nixon Aguilar MD LAB BLOOD ORDERABLES Final R esult Performing Organization Address City/[facility]/ZIP Co de Phone Number [facility] [address] [place] [address] * T4, total (06/01/2017 5:03 PM EST) THYROXINE 7.4 4.6 - 12.0 ug/dL [facility] Blood 06/01/2017 5:03 PM EST 06/01/2017 5:10 PM EST us Nixon Aguilar MD LAB BLOOD ORDERABLES Final R esult Performing Organization Address [facility] Co de Phone Number [address] [address] * TSH (06/01/2017 5:03 PM EST) Pathologist [facility] TSH 2.93 0.27 - 4.20 uIU/mL [facility] Blood 06/01/2017 5:03 PM EST 06/01/2017 5:10 PM EST us Nixon Aguilar MD LAB BLOOD ORDERABLES Final R esult Performing Organization Address [facility] Co de Phone Number [address] [address] documented in this encounter Visit Diagnoses Diagnosis Numbness- Primary Disturbance of skin sensation documented in this encounter Care Teams Shrimper Relationship Specialty Start Date End Date Love Tavera MD [address] [place] [address] [email or web address] PCP - General 06/01/17 09/26/17 Zari Morrison MD [address] [place] [address] [email or web address] PCP - General Family Medicine 09/27/1704/26 Daron Juarez DO [address] [address] PCP - General Family Medicine 04/27/24 documented as of this encounter Additional Source Comments The information contained in this document represents components of the legal health record. It is not the complete legal health record.[facility]
--- OUTSIDE RECORDS SUMMARY | 2025-05-18 10:14 | XMS_ITS | Encounter Summary ---
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); SAPHO syndrome Social History Tobacco Use Types Packs/Day Years [...] Visit [facility] Rheumatology [address] [place] [address] Tiana Ovalles MD [address] [facility], [address] [place] [address] [email or web address] documented as of this encounter Results * 25-OH vitamin D (07/30/2018 10:01 AM EST) 25 OH VIT D (TOTAL) 31 30 - 60 ng/mL [facility] Blood 07/30/2018 10:0 1 AM EST 07/30/2018 10:02 AM EST us Zari Morrison MD LAB BLOOD ORDERABLES Sowmya shell Result [facility] [address] [place] [address] * (ABNORMAL) Lipid panel (07/30/2018 10:01 AM EST) HDL 59 mg/dL [facility] Comment: Interpretation <40 mg/dL: Low HDL cholesterol (major risk factor for CHD) Greater than or equal to 60 mg/dL: High HDL cholesterol ( negative risk factor for CHD) HDL - cholesterol is affected by a number of factors, e.g. smoking, excerise, hormones, sex and age. CHOLESTEROL 173 0 - 240 mg/dL [facility] TRIGLYCERIDES 72 30 - 160 mg/dL [facility] LDL 100 50 - 129 mg/dL [facility] Comment: LDL levels in terms of risk for coronary heart disease: <100 mg/dL: Optimal 100-129 mg/dL: Near or above optimal 130-159 mg/dL: Borderline high 160-189 mg/dL: High >190 mg/dL: Very High CARDIAC RISK RATIO 2.9(L) 3.3 - 4.4 [facility] Blood 07/30/2018 10:0 1 AM EST 07/30/2018 10:02 AM EST us Zari Morrison MD LAB BLOOD ORDERABLES Sowmya l Result Performing Organization Address City/[facility]/ZIP Co de Phone Number [address] [address] * (ABNORMAL) Basic metabolic panel (07/30/2018 10:01 AM EST) SODIUM 143 133 - 146 mmol/L [facility] CHLORIDE 105 96 - 108 mmol/L [facility] POTASSIUM 4.5 3.3 - 5.1 mmol/L [facility] CO2 28 21 - 35 mmol/L [facility] BUN 9 6 - 19 mg/dL [facility] CREATININE 0.50 0.5 - 1.5 mg/dL [facility] GLUCOSE 105(H) 70 - 99 mg/dL [facility] CALCIUM 9.1 8.4 - 10.3 mg/dL [facility] EGFR 99 >59 mL/min/1.7 3m2 [facility] Comment:If patient is black, multiply result by 1.159. Estimated glomerular filtration rate calculated using the CKD-EPI equation. 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 It is not the complete legal health record.[facility]
--- OUTSIDE RECORDS SUMMARY | 2025-05-18 10:14 | XMS_ITS | Encounter Summary ---
Author Organization [facility] Address [address] [place] [address] Phone Care Team Providers Care House Wrecker Name Role Phone Zari Morrison MD Primary Care Provider + [phone] Daron Juarez DO Primary Care Provider [phone] Encounter Details Date Type Department Care Team (Latest Contact Info) Description 09/27/2017 Transcribe Orders [facility] [address] [place] [address] Zari Morrison MD [address] [place] [address] [email or web address] Abdominal distention (Primary Dx) Social History Tobacco Use Types [...] Visit [facility] Rheumatology [address] [place] [address] Tiana Ovalles MD 22 [facility], [address] [place] [address] [email or web address] documented as of this encounter Results * CA-125 (09/27/2017 9:53 AM EST) CA 125 9.9 5.5 - 35.0 U/mL [facility] Blood 09/27/2017 9:53 AM EST 09/27/2017 9:57 AM EST us Zari Morrison MD LAB BLOOD ORDERABLES Sowmya shell Result [facility] [address] [place] [address] documented in this encounter Visit Diagnoses Diagnosis Abdominal distention- Primary Flatulence, eructation, and gas pain documented in this encounter Care Teams House Wrecker Relationship Specialty Start Date End Date Zari Morrison MD [address] [place] [address] [email or web address] PCP - General Family Medicine 09/27/1704/26 Daron Juarez DO [address] [address] PCP - General Family Medicine 04/27/24 documented as of this encounter Additional Source Comments The information contained in this document represents components of the legal health record. It is not the complete legal health record.[facility]
--- OUTSIDE RECORDS SUMMARY | 2025-05-18 10:15 | XMS_ITS | Encounter Summary ---
Author Organization [facility] Address [address] [facility] [address] [place] [address] Phone Care Team Providers Care Customer Advisor Name Role Phone Zari Morrison MD Primary Care Provider [phone] Daron Juarez DO Primary Care Provider [phone] Encounter Details Date Type Department Care Team (Late st Contact Info) Description 04/11/2019 Procedure Pass [facility] Endoscopy Admitting Dept Virtual Department [address] [place] [address] Social History Tobacco Use Types Packs/Day Years [...] Visit [facility] Rheumatology [address] [place] [address] Tiana Ovalles MD 22 [facility], [address] [place] [address] [email or web address] documented as of this encounter Visit Diagnoses Not on filedocumented in this encounter Care Teams Customer Advisor Relationship Specialty Start Date End Date Zari Morrison MD [address] [place] [address] [email or web address] PCP - General Family Medicine 09/27/1704/26 Daron Juarez DO [address] [address] PCP - General Family Medicine 04/27/24 documented as of this encounter Additional Source Comments The information contained in this document represents components of the legal health record. It is not the complete legal health record.[facility]
--- OUTSIDE RECORDS SUMMARY | 2025-05-18 10:15 | XMS_ITS | Continuity of Care Document ---
Author Organization [facility] Address [address] [facility] [address] [place], [place] Phone [phone] Care Team Providers Care Finishing Powder Press Operator Name Role Phone Zari Morrison MD Care Team Information Recreation Establishment Manager U navailable BETSY GUTIERREZ M.D. Care Team Information Rec eiver Unavailable Zari Morrison MD Primary Care Physician Unavailab le Problems Active Problems Provider Date Osteoporosis Betsy Gutierrez M.D. Onset: 0 04/13/2022 Social History Type Date Description Comments Sex Female Sex Unknown Allergies and adverse reactions Active Allergies Criticality Reaction Severity Comments Date Tree Pollen Unable to assess criticality 01/12/2022 Mold Unable to assess criticality 01/12/2022 Dust Mites Unable to assess criticality 01/12/2022 Seasonal Unable to assess criticality 01/12/2022 Rabbits Unable to assess criticality 01/12/2022 Horse Unable to assess criticality 01/12/2022 Guinea Pigs Unable to assess criticality 01/12/2022 Medications Active Medications SIG Qnty Indications Ordering Provider Date Atomoxetine ZTQ01ja Capsules Take 2 Capsules By Mouth Every Day In The Morning Unknown Calcipotriene0.005% Cream Zari Morrison MD Ciclopirox8% Solution nail lacuer(for fungal nails) Unknown Clobetasol Propionate0.05% Ointment Deisi Mendoza Calcipotriene0.005% Ointment Unknown Ipratropium Bromide0.06% Solution nasal Unknown Estradiol 0,01% use Qohs vaginally Unkno wn Allergy (Cetirizine)10mg Tablets Unknown Vit B12+ 1,200mcg SL a day Unknown Osteo-Sustain [Ca+166/D333Mg] x2-3 a day Unknown Vit D2000 1/d->2/d(as per PCP) Unknown Mvit(Core Daily) [Ca+224/D800/B12@50 0] x1/d Unknown Allergy Shots Unknown History Medications Alendronate Esjhia80se Tablets 1 tab by mouth every week w/tall glass water, empty stomach, 4hr from calcium, stay upright 4tabs M81.6 Betsy Gutierrez M.D. 04/13/2022 - 02/11/2023
== END 2025-05-18 09:23 | disposition home or self-care (01) ==
LOC: HO.MAMMO 09:22
PROVIDERS: PCP Family Medicine; Visit Provider Internal Medicine Rheumatology
DX: Z13.820 Encounter for screening for osteoporosis (principal); M85.89 Other specified disorders of bone density and structure, multiple sites
CPT/HCPCS: 77080